=== PATIENT | female | born 1965 | race Caucasian/White ===

== ENCOUNTER 2018-01-02 10:30 | Emergency (ER) | payer OTHER ==
[2018-01-02] MEDS ORDERED: KETOROLAC 30 MG/ML INJ ONE (11:01)
[2018-01-02] MEDS ORDERED: MEPERIDINE HCL 25 MG/0.5 ML ONE (11:01)
[2018-01-02] MEDS ORDERED: DEXAMETHASONE 10 MG/ML VIAL ONE (11:01)
[2018-01-02] MEDS ORDERED: ONDANSETRON 4 MG/2 ML VIAL ONE (11:02)
[2018-01-02] MEDS ORDERED: NA CHLORIDE 0.9% 100 ML IV ONE (11:02)
[2018-01-02] MEDS ORDERED: METHOCARBAMOL 1,000 MG in NA CHLORIDE 0.9% 100 ML IV ONE (12:00)
--- NOTE | 2018-01-02 12:56 | EDPHYS ---
Physician Documentation [facility] Name: Elsi Hay Age: 52 yrs Sex: Female : 1965 Arrival Date: 01/02/2018 Time: 10:35 Bed 17 Private MD: ED Physician Gurpreet Lynn HPI: 01/02 10:57 This 52 yrs old Female presents to ER via Wheelchair with complaints of Low jr8 Back Pain. 10:57 The patient presents with pain that is acute. The symptoms are located in the low back. jr8 The pain radiates. The problem was sustained from twisting. Onset: The symptoms/episode began/occurred acutely, 2 day(s) ago. Modifying factors: The patient symptoms are alleviated by nothing, the patient symptoms are aggravated by any movement. Associated signs and symptoms: The patient has no apparent associated signs or symptoms. Severity of symptoms: At their worst the symptoms were moderate, in the emergency department the symptoms are unchanged. The patient has experienced similar episodes in the past, a few times. The patient has not recently seen a physician. Patient stated that she has known history of lumbar bulging discs. Stated that she will have acute on chronic pain every once in a while. Normally can do OTC medication and will go away. After accidently twisting back two days ago has had more severe pain that she cannot control with OTC medication and rest. Denies saddle anesthesia, bowel or bladder dysfunction. Stated that she can still walk and bear weight but with pain . 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 - Social history:: Smoking status: Patient/guardian denies using tobacco. ROS: 10:59 Eyes: Negative for injury, pain, redness, and discharge, ENT: Negative for injury, jr8 pain, and discharge, Neck: Negative for injury, pain, and swelling, Cardiovascular: Negative for chest pain, palpitations, and edema, Respiratory: Negative for shortness of breath, cough, wheezing, and pleuritic chest pain, Abdomen/GI: Negative for abdominal pain, nausea, vomiting, diarrhea, and constipation, MS/Extremity: Negative for injury and deformity, Skin: Negative for injury, rash, and discoloration, Neuro: Negative for headache, weakness, numbness, tingling, and seizure. 10:59 Back: Positive for decreased range of motion, pain at rest, pain with movement, radiated pain, of the lumbar area, left low back and right low back. Exam: 10:59 Eyes: Pupils equal round and reactive to light, extra-ocular motions intact. Lids and jr8 lashes normal. Conjunctiva and sclera are non-icteric and not injected. Cornea within normal limits. Periorbital areas with no swelling, redness, or edema. ENT: Nares patent. No nasal discharge, no septal abnormalities noted. Tympanic membranes are normal and external auditory canals are clear. Oropharynx with no redness, swelling, or masses, exudates, or evidence of obstruction, uvula midline. Mucous membranes moist. Neck: Trachea midline, no thyromegaly or masses palpated, and no cervical lymphadenopathy. Supple, full range of motion without nuchal rigidity, or vertebral point tenderness. No Meningismus. Cardiovascular: Regular rate and rhythm with a normal S1 and S2. No gallops, murmurs, or rubs. Normal PMI, no JVD. No pulse deficits. Respiratory: Lungs have equal breath sounds bilaterally, clear to auscultation and percussion. No rales, rhonchi or wheezes noted. No increased work of breathing, no retractions or nasal flaring. Abdomen/GI: Soft, non-tender, with normal bowel sounds. No distension or tympany. No guarding or rebound. No evidence of tenderness throughout. Skin: Warm, dry with normal turgor. Normal color with no rashes, no lesions, and no evidence of cellulitis. MS/ Extremity: Pulses equal, no cyanosis. Neurovascular intact. Full, normal range of motion. Strength 5/5 bilaterally in all extremities Neuro: Awake and alert, GCS 15, oriented to person, place, time, and situation. Cranial nerves II-XII grossly intact. Motor strength 5/5 in all extremities. Sensory grossly intact. Cerebellar exam normal. Normal gait. 10:59 Back: pain, that is moderate, of the lumbar area, left low back and right low back, ROM is painful, normal spinal alignment noted, CVA tenderness, is absent, vertebral tenderness, is not appreciated, Straight leg raises: of both lower extremities does not illicit pain. Vital Signs: 10:39 BP 148 / 107; Pulse 97; Resp 17; Temp 97.0; Pulse Ox 97% on R/A; Weight 108.86 kg; la1 Height 5 ft. 8 in. (172.72 cm); 11:17 BP 135 / 65; Pulse 71; Resp 18; Temp 97.; Pulse Ox 99% on R/A; Pain 6/10; ch 12:55 BP 118 / 85; Pulse 77; Resp 16; Temp 98.3; Pulse Ox 99% on R/A; Pain 3/10; ch 10:39 Body Mass Index 36.49 (108.86 kg, 172.72 cm) la1 MDM: 10:41 Patient medically screened. jr8 12:53 Differential diagnosis: strain, sciatica, Herniated disc UTI, Cauda Equina syndrome. jr8 Data reviewed: vital signs, nurses notes, lab test result(s), and as a result, I will discharge patient. Data interpreted: Pulse oximetry: on room air is 99 %. Interpretation: normal. Counseling: I had a detailed discussion with the patient and/or guardian regarding: the historical points, exam findings, and any diagnostic results supporting the discharge/admit diagnosis, lab results, the need for outpatient follow up, a neurosurgeon, to return to the emergency department if symptoms worsen or persist or if there are any questions or concerns that arise at home. Response to treatment: the patient's symptoms have mildly improved after treatment. ED course: Patient resting comfortably in bed. Able to stand but with pain. Could urinate in ED. Good strength on physical exam. Recommended neurosurgical or ortho spine reevaluation. If worse to come back. Patient good with this and would follow up . 01/02 12:25 Order name: Urine Dipstick--Ancillary (enter results) ag 01/02 10:57 Order name: IV; Complete Time: 11:19 jr8 01/02 10:57 Order name: Urine Dipstick-Ancillary (obtain specimen); Complete Time: 12:11 jr8 Administered Medications: :18 Drug: Decadron - Dexamethasone 10 mg Route: IVP; Infused Over: 15 mins; Site: right ch antecubital; 12:11 Follow up: Response: No adverse reaction 11:18 Drug: Demerol 25 mg Route: IVP; Site: right antecubital; ch 12:11 Follow up: Response: No adverse reaction ch 11:18 Drug: Zofran 4 mg Route: IVP; Site: right antecubital; ch 12:11 Follow up: Response: No adverse reaction; Marked relief of symptoms ch 11:19 Drug: TORadol 30 mg Route: IVP; Site: right antecubital; ch 12:11 Follow up: Response: No adverse reaction; Marked relief of symptoms ch 11:40 Drug: Robaxin 1 grams Route: IVPB; Infused Over: 1 hrs; Site: right antecubital; ch 12:58 Follow up: IV Status: Completed infusion; IV Intake: 100ml ch Disposition: 18:52 Co-signature as Attending Physician, Gurpreet Lynn MD. Disposition: 01/02/18 12:55 Discharged to Home. Impression: Low back pain. - Condition is Stable. - Discharge Instructions: Back Pain, Adult, Musculoskeletal Pain, Back Exercises, [id number], Heat Therapy. - Prescriptions for Ibuprofen 800 mg Oral Tablet - take 1 tablet by ORAL route every 12 hours As needed take with food; 20 tablet. Cyclobenzaprine 10 mg Oral Tablet - take 1 tablet by ORAL route every 8 hours As needed; 30 tablet. Tramadol 50 mg Oral Tablet - take 1 tablet by ORAL route every 8 hours as needed; 12 tablet. Medrol (Mauricio) 4 mg Oral Tablets, Dose Pack - take 1 tablet by ORAL route as directed - follow package instructions; 1 packet. - Medication Reconciliation Form, Thank You Letter, Antibiotic Education, Prescription Opioid Use form. - Follow up: Private Physician; When: 1 week; Reason: Recheck today's complaints, Continuance of care, Re-evaluation by your physician. - Problem is new. - Symptoms have improved. Signatures: Dispatcher [employer] EDMS Courtney Martinez RN RN Dg Gallagher PA PA jr8 José Miguel Damon RN RN la1 Gurpreet Lynn MD MD Corrections: (The following items were deleted from the chart) 13:11 12:55 01/02/2018 12:55 Discharged to Home. Impression: Low back pain. Condition is ch Stable. Forms are Medication Reconciliation Form, Thank You Letter, Antibiotic Education, Prescription Opioid Use. Follow up: Private Physician; When: 1 week; Reason: Recheck today's complaints, Continuance of care, Re-evaluation by your physician. Problem is new. Symptoms have improved. jr8
--- NOTE | 2018-01-02 12:56 | ER ---
Nurse's Notes [facility] Name: Elsi Hay Age: 52 yrs Sex: Female : 1965 Arrival Date: 01/02/2018 Time: 10:35 Bed 17 Private MD: Diagnosis: Low back pain Presentation: 01/02 10:38 Presenting complaint: Patient states: I have bulging disks in my back and it tweaks la1 every once and a while and the other day I was getting up and it tweaked and it is just getting worse. Transition of care: patient was not received from another setting of care. Onset of symptoms was January 02, 2018. Initial Sepsis Screen: Does the patient meet any 2 criteria? No. Patient's initial sepsis screen is negative. Does the patient have a suspected source of infection? No. Patient's initial sepsis screen is negative. Care prior to arrival: None. 10:38 Method Of Arrival: Wheelchair la1 10:38 Acuity: JUAN 3 la1 Triage Assessment: 13:11 General: Behavior is calm, cooperative. 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 - Social history:: Smoking status: Patient/guardian denies using tobacco. Screenin:17 Abuse screen: Denies threats or abuse. Denies injuries from another. Nutritional ch screening: No deficits noted. Tuberculosis screening: No symptoms or risk factors identified. Fall Risk None identified. Assessment: 10:50 General: Appears in no apparent distress. comfortable. Pain: Complains of pain in back ch and right low back and left low back and lumbar area Pain currently is 9 out of 10 on a pain scale. Pain began gradually, 2-3 days ago. Neuro: No deficits noted. Respiratory: Airway is patent Respiratory effort is even, unlabored, Breath sounds are clear bilaterally. GI: No signs and/or symptoms were reported involving the gastrointestinal system. : No signs and/or symptoms were reported regarding the genitourinary system. Derm: Skin is pink, warm \T\ dry. Musculoskeletal: Reports pain in back, right leg and left leg pt states she has tingling and pain that radiated from mid back down to solomon buttocks, legs, further in L leg than right. 11:42 Reassessment: Patient appears in no apparent distress at this time. Patient and/or ch family updated on plan of care and expected duration. Pain level reassessed. Patient is alert, oriented x 3, equal unlabored respirations, skin warm/dry/pink. Patient states feeling better. Patient states symptoms have improved. 12:11 Reassessment: Patient appears in no apparent distress at this time. pt on BSC for urine ch sample. pt has pain with movement at all. 12:55 Reassessment: Patient appears in no apparent distress at this time. Patient and/or ch family updated on plan of care and expected duration. Pain level reassessed. Patient is alert, oriented x 3, equal unlabored respirations, skin warm/dry/pink. Patient states feeling better. Patient states symptoms have improved. 12:58 Reassessment: Patient appears in no apparent distress at this time. Patient and/or ch family updated on plan of care and expected duration. Pain level reassessed. Patient is alert, oriented x 3, equal unlabored respirations, skin warm/dry/pink. Vital Signs: 10:39 BP 148 / 107; Pulse 97; Resp 17; Temp 97.0; Pulse Ox 97% on R/A; Weight 108.86 kg; la1 Height 5 ft. 8 in. (172.72 cm); 11:17 BP 135 / 65; Pulse 71; Resp 18; Temp 97.; Pulse Ox 99% on R/A; Pain 6/10; ch 12:55 BP 118 / 85; Pulse 77; Resp 16; Temp 98.3; Pulse Ox 99% on R/A; Pain 3/10; ch 10:39 Body Mass Index 36.49 (108.86 kg, 172.72 cm) la1 ED Course: 10:35 Patient arrived in ED. sb2 10:39 Triage completed. la1 10:40 Arm band placed on left wrist. la1 10:41 Dg Hernandez PA is PHCP. jr8 10:41 Gurpreet Lynn MD is Attending Physician. jr8 10:57 Courtney Martinez, GABRIEL is Primary Nurse. ch 11:17 No apparent distress. Resting quietly. ch 11:17 Patient has correct armband on for positive identification. Placed in gown. Bed in low ch position. Call light in reach. Side rails up X 1. Adult w/ patient. Pulse ox on. NIBP on. Warm blanket given. Pillow given. 11:17 No provider procedures requiring assistance completed. Inserted saline lock: 22 gauge ch in right antecubital area, using aseptic technique. Missed attempt(s): 22 gauge in right forearm. 13:11 IV discontinued, intact, bleeding controlled, No redness/swelling at site. Pressure ch dressing applied. Administered Medications: 11:18 Drug: Decadron - Dexamethasone 10 mg Route: IVP; Infused Over: 15 mins; Site: right ch antecubital; 12:11 Follow up: Response: No adverse reaction ch 11:18 Drug: Demerol 25 mg Route: IVP; Site: right antecubital; ch 12:11 Follow up: Response: No adverse reaction ch 11:18 Drug: Zofran 4 mg Route: IVP; Site: right antecubital; ch 12:11 Follow up: Response: No adverse reaction; Marked relief of symptoms ch 11:19 Drug: TORadol 30 mg Route: IVP; Site: right antecubital; ch 12:11 Follow up: Response: No adverse reaction; Marked relief of symptoms ch 11:40 Drug: Robaxin 1 grams Route: IVPB; Infused Over: 1 hrs; Site: right antecubital; ch 12:58 Follow up: IV Status: Completed infusion; IV Intake: 100ml ch Intake: 12:58 IV: 100ml; Total: 100ml. ch Outcome: 12:55 Discharge ordered by MD. clark 13:10 Discharged to home ambulatory, with family. ch 13:10 Condition: stable 13:10 Discharge instructions given to patient, family, Instructed on discharge instructions, follow up and referral plans. medication usage, Demonstrated understanding of instructions, follow-up care, medications, Prescriptions given X 4. 13:11 Patient left the ED. ch Signatures: Courtney Martinez RN Dg Felipe ch, PA PA jr8 Attema, Lee, RN RN Liss Rhoades
[2018-01-02 14:04] LABS: Urine Blood 2+ (NEG); Urine Glucose NEGATIVE (NEG); Urine Protein NEGATIVE (NEG)
== END 2018-01-02 13:11 | disposition home or self-care (01) ==
LOC: ER 10:30
DX: M54.5 Low back pain (principal); Z88.3 Allergy status to other anti-infective agents
CPT/HCPCS: 81003; 96365; 96375; 99284; J1100; J2175; J2405; J2800